=== PATIENT | male | born 1995 | race Caucasian/White ===

== ENCOUNTER 2024-06-06 19:46 | Emergency (ER) | payer OTHER, SELFPAY ==
[2024-06-06 19:54] VITALS: BP 164/108
--- NOTE | 2024-06-06 21:26 | EDRN ---
called patient when he was not found when his room was ready-- he stated that he left after waiting for 30 min. and would not be coming back-- I expressed concern and told him to come back if his symptoms continue or worsen in any way
== END 2024-06-06 21:29 ==
LOC: EMR 19:46
DX: R07.81 Pleurodynia (principal); Z53.21 Procedure and treatment not carried out due to patient leaving prior to being seen by health care provider
CPT/HCPCS: 71046

== ENCOUNTER 2024-06-07 05:03 | Inpatient (IN) | payer OTHER, SELFPAY ==
[2024-06-06 22:14] VITALS: BP 130/74
[2024-06-06 23:21] VITALS: BP 121/60
[2024-06-06 23:28] VITALS: BMI 30.1
[2024-06-06 23:58] LABS: % Basophils 0.4 % (0-2); % Eosinophils 4.4 % (0-6); % Immature Granulocytes 0.1 % (0-0.5); % Lymphocytes 25.5 % (20.5-51.1); % Monocytes 8.7 % (1.7-9.3); % Neutrophils 60.9 % (42.2-75.2); Absolute Eosinophils 0.4 10^3/uL (0-0.7); Absolute Lymphocytes 2.1 10^3/uL (1.2-3.4); Absolute Monocytes 0.7 10^3/uL (0.1-0.6); Hematocrit 39.9 % (39.0-52.0); Mean Corp Hgb Conc. 35.1 g/dL (33.0-37.0); Mean Corpuscular Hgb 30.7 pg (27.0-31.0); Mean Corpuscular Volume 87.5 fL (80.0-94.0); Mean Platelet Volume 9.8 fL (7.4-10.4); Nucleated Red Blood Cells % 0 % (-); Platelet Count 206 10^3/uL (130-400); Red Blood Cell Count 4.56 10^6/uL (4.70-6.10); Red Cell Dist. Width 11.4 % (11.5-14.5); White Blood Cell Count 8.2 10^3/uL (4.8-10.8)
[2024-06-07] VITALS (13 sets, daily range): BP systolic 113–142; BP diastolic 60–90; BMI 30.2
[2024-06-07 00:15] LABS: ALT (SGPT) 24 U/L (0-50); AST (SGOT) 28 U/L (17-59); Albumin 4.3 g/dl (3.5-5.0); Alkaline Phosphatase 60 U/L (38-126); Blood Urea Nitrogen 24 mg/dl (9-20); Calcium 9.6 mg/dl (8.4-10.2); Carbon Dioxide 33 mmol/L (22-30); Chloride 98 mmol/L (98-107); Estimated Creatinine Clearance 80 ml/min; Glucose 109 mg/dl (70-99); Potassium 4.5 mmol/L (3.5-5.1); Sodium 137 mmol/L (135-145); Total Bilirubin 0.5 mg/dl (0.2-1.3); Total Protein 7.1 g/dl (6.3-8.2); eGFR > 60.00
[2024-06-07 00:22] LABS: Troponin I < 0.012 ng/ml
--- NOTE | 2024-06-07 01:32 | ED.GENMED ---
History of Present Illness
General
Chief Complaint: Chest Problem
Source: patient
Exam Limitations: none
Time Seen by Provider: 06/07/24 00:48
Nursing documentation reviewed up to this point in time: agreed with
History of Present Illness
History of Present Illness:
Pleasant 28-year-old male presents with pain with inspiration. Patient states that the pain started 2 days ago and has recently increased in severity. Patient was seen earlier today and had a chest x-ray. He left AGAINST MEDICAL ADVICE from the
waiting room. He returned because his symptoms returned. The patient states that though he has asthma he reports that this is different.
Past History
Past History
ED Past Medical History: None
ED Past Surgical History: None
Social History
Alcohol: None
Personal: Single
Employment: Employed
Review of Systems
Review of Systems
Allergies reviewed?: Yes
All Other Systems: ROS reviewed and negative except as documented in HPI and ROS
Constitutional: Reports no symptoms
EENT: Reports no symptoms
Respiratory: Reports no symptoms
Cardiac: Reports palpitations
ABD/GI: Reports no symptoms
: Reports no symptoms
Musculoskeletal: Reports no symptoms
Skin: Reports no symptoms
Neurological: Reports no symptoms
Endocrine: Reports no symptoms
Hematologic/Lymphatic: Reports no symptoms
Psychiatric: Reports anxiety
Phy Exam
General Physical Exam
General Presentation: well appearing and no apparent distress
General Skin: warm and dry
General Habitus: normal
General Mental: alert
General Hydration: appears well hydrated
ENT Exam
ENT Exam: EOMI, pharynx normal, neck supple and normocephalic
Eye Exam
Eye Exam: PERRL, cornea clear and conjunctiva normal
Cardiovascular Exam
Cardiovascular Exam: regular rate/rhythm, no edema, no murmur and normal peripheral pulses
Pulmonary Exam
Pulmonary Exam: lungs clear, no respiratory distress, no rales, no crackles, no rhonchi, no stridor, no wheezing and no cough
Gastrointestinal Exam
Gastrointestinal Exam: normal bowel sounds, non tender, soft, no organomegaly, no pulsatile mass and non distended
Neurological Exam
Neurological Exam: alert, oriented x3, no motor deficits and speech normal
Musculoskeletal Exam
Musculoskeletal Exam: full ROM and no edema
Skin Exam
Skin Exam: normal color, warm/dry, no rash and no petechia
Psychiatric Exam
Psychiatric Exam: normal mood/affect
Course
Orders/Labs/Results
Orders:
Orders
06/06/24 22:19
Electrocardiogram (*1) Urgent
Reason for Study: Chest Pain
EKG- Treatment ONCE
06/06/24 23:53
Complete Blood Count/With Diff Urgent
Comprehensive Metabolic Panel Urgent
Troponin I Urgent
06/07/24 01:00
CT Chest Pe Study Stat
Comment:
Reason For Exam: tachycardia
06/07/24 02:33
PTT Urgent
Comment: Obtain baseline before beginning heparin infusion if not already collected
Heparin 8,100 units IV NOW STA
Pharmacy Request to Place See Dose Instructions PO NOW STA
Discontinue all Active Warfarin orders?: Yes
Nursing to Place Non Medication Order As Directed
Physician Order: PTT 6 hours after initial start of Heparin infusion
06/07/24 02:45
Heparin 24820 Units/250 ml 25,000 units in 250 ml IV PER PROTOCOL
Weight to be used for heparin protocol in kilograms (kg):: 100.7
Protocol:: DVT/PE
PTT Goal Range to be used:: PTT 73 to 111 seconds
Order type:: Initial
INITIAL Infusion Dose (UNITS/KG/hr) & then follow protocol:: 18 units/kg/hr
Infusion Dose in UNITS/hr & then follow protocol (UNITS/hr):: 1,800
INFUSION RATE in mL/hr & then follow protocol (mL/hr):: 18
For DVT/PE algorithm, re-bolus for low PTT?: Yes
PTT less than or equal to 64 seconds:: Re-bolus 80 units/kg (max 10,000units). Increase by 400 units/hr
(+ 4mL/hr)
PTT 64.1 to 72.9 seconds:: Re-bolus 40 units/kg (max 5,000 units). Increase by 200 units/hr
(+ 2mL/hr)
PTT 73 to 111 seconds:: Target Range. No change in rate.
PTT 111.1 to 130.9 seconds:: Decrease rate by 200 units/hr (- 2 mL/hr)
PTT 131 to 199.9 seconds:: HOLD for 1 hr. Then decrease by 300 units/hr (- 3mL/hr)
PTT greater than or equal to 200 seconds:: HOLD for 2 hrs & Notify Provider. Then decrease by 400 units/hr
(- 4mL/hr)
Lab follow-up:: Each change, PTT q6h until 2 consecutive are therapeutic. Then
PTT daily.
06/07/24 03:[address] See Dose Instructions IV DIRECTED
Abnormal Lab Results
06/06/24
23:53
RBC 4.56 L 10^6/uL
(4.70-6.10)
RDW 11.4 L %
(11.5-14.5)
Absolute Monos (auto) 0.7 H 10^3/uL
(0.1-0.6)
Carbon Dioxide 33 H mmol/L
(22-30)
BUN 24 H mg/dl
(9-20)
Creatinine 1.5 H mg/dL
(0.7-1.3)
Glucose 109 H mg/dl
(70-99)
06/06/24 23:53
06/06/24 23:53
Vital Signs
Initial and Last Documented VS:
Initial Vital Signs
Temp Pulse Resp BP Pulse Ox
98.3 F 102 18 130/74 96
06/06/24 22:14 06/06/24 22:14 06/06/24 22:14 06/06/24 22:14 06/06/24 22:14
Last Documented Vital Signs
Temp Pulse Resp BP Pulse Ox
98.3 F 64 19 123/75 96
06/06/24 22:14 06/07/24 02:00 06/07/24 02:00 06/07/24 02:00 06/07/24 02:00
*Radiology
Radiology exam reviewed: radiology read reviewed
*Critical Care Note
Total Time (30-74mins, 75-104mins- exclusive of procedures): 30
comment:
Critical care statement: A total of 30 minutes of critical care time was provided for this patient. This time is separate from time utilized to perform the aforementioned documented procedures. Aggregate critical care time includes only time
during which I was engaged in work directly related to the patient's care, as described above, whether at the bedside or elsewhere in the Emergency Department.
Patient Management
Social determinants of health affecting care: Strong social support
Discussion with other providers: Hospitalist and Radiologist
ED Attending Note
-
Portions of this chart may have been created with voice recognition software.� Occasional wrong word or��sound alike� substitutions may have occurred due to the inherent limitations of voice recognition software.
Discharge Plan
Departure
Patient Disposition: Admit
Date of Disposition: 06/07/24
Time of Disposition: 02:42
Presentation/result/management discussed w/ accepting MD/DO: Hospitalist
Condition: Good
Discharge Problem:
Pulmonary embolism
Prescriptions:
No Action
diclofenac sodium 75 MG tablet,delayed release (DR/EC)
75 mg PO BID Qty: 10 0RF
Referrals:
Tresa Omalley CRNP [Family Provider] -
Interventions
Interventions:
*Risk Screen - Suicide Last Done: 06/06/24 22:14
*General Assessment Last Done: 06/06/24 22:14
*Neglect/Abuse Screening Last Done: 06/06/24 22:14
ED- Fall Risk Assessment Last Done: 06/06/24 23:29
*ED COVID-19 Vaccine History Last Done: 06/06/24 23:29
ED- Cardiac Assessment Last Done: 06/06/24 23:29
ED- Pulmonary Assessment Last Done: 06/06/24 23:29
Discharge Date and Time
Print Language: OCCITAN
[2024-06-07] MEDS: HEPARIN 8100 UNITS IV (02:43)
[2024-06-07] MEDS: HEPARIN 25000 UNITS/250 ML IV ×2 (03:25→19:22)
--- NOTE | 2024-06-07 04:53 | HPS.HSE ---
Family Physician
-
Family Physician: JOHN Ruiz
Chief Complaint
-
CP
History of Present Illness
HPI
28M HX depression seen at ER yesterday for eval of CP with deep breathing.
Had CXR but left AMA.
Return to ER this hour due to worsening CP
Stable VSS
CXR: shows tiny loculated right pleural effusion.
CTC PE study; concerning for pulmonary infarcts. PE noted in the RLL segmental artery and likely in a lingular segmental pulmonary artery
- Hemodynamically stable
- NEG CT evidence of RH strain
- No prior HX DVT or PE
- Unknown for FHX of PE/DVT
- denied recent prolonged travelling, recent surgery
- denied leg swelling
- denied anabolic steroid use
Medical History
Past Medical History
Past Medical History: Reports Psychiatric (depression )
Past Surgical History: Reports None
Social History
Tobacco: Non-smoker
Alcohol: None
Family History
Family History: Not pertinent
Allergies / Home Medications
Allergies reflects when Allergies were last updated in [facility].
Home Medications with original date entered in [facility]
Allergy/Medication List:
Allergies
Allergy/AdvReac Type Severity Reaction Status Date / Time
brompheniramine Allergy Swelling Verified 06/06/24 19:57
[From Dimetapp
(brompheniramine-PPA)]
phenylpropanolamine Allergy Swelling Verified 06/06/24 19:57
[From Dimetapp
(brompheniramine-PPA)]
Home Medications
diclofenac sodium 75 mg tablet,delayed release 75 mg PO BID #10 tabs 06/17/17
Lexapro 10 mg PO DAILY 06/07/24
valacyclovir 500 mg PO DAILY 06/07/24
Review of Systems
-
Constitutional: Reports No Symptoms
EENT: Reports No Symptoms
Respiratory: Reports See HPI
Cardiac: Reports No Symptoms
Abdomen/GI: Reports No Symptoms
: Reports No Symptoms
Musculoskeletal: Reports No Symptoms
Skin: Reports No Symptoms
Neurological: Reports No Symptoms
Endocrine: Reports No Symptoms
Hematologic/Lymphatic: Reports No Symptoms
Psych: Reports No Symptoms
Physical Exam
Vital Signs
Vital Signs
Temp Pulse Resp BP Pulse Ox
98.3 F 110 26 123/75 98
06/06/24 22:14 06/07/24 02:45 06/07/24 02:45 06/07/24 02:00 06/07/24 02:45
Physical Exam
General: Well Developed, Well Nourished and No Apparent Distress
HEENT: NormoCephalic, Moist mucous membranes and Atraumatic
Respiratory: Clear
Cardiac: S1/S2 and Regular Rhythm; No Murmur or Rub
GI: Soft, Non Tender, Non Distended and Normal Bowel Sounds; No Organomegaly
Rectal: Deferred by Provider
Musculoskeletal: No Clubbing, No Cyanosis and No Edema
Skin: No Rash
Neuro: Nonfocal/grossly intact
Laboratory Results
-
06/06/24 23:53
06/06/24 23:53
Laboratory Results
APTT 27.0 Sec (23.4-35.0) 06/07/24 02:51
Total Bilirubin 0.5 mg/dl (0.2-1.3) 06/06/24 23:53
AST 28 U/L (17-59) 06/06/24 23:53
ALT 24 U/L (0-50) 06/06/24 23:53
Alkaline Phosphatase 60 U/L (38-126) 06/06/24 23:53
Troponin I < 0.012 ng/ml 06/06/24 23:53
Data Reviewed
-
CT Scan: Report Reviewed by me
Lab Data: Labs Reviewed by me
Impression/Plan
-
Reviewed VS: unremarkable
Data
Unremarkable CBC
CO2 33
BUN 24
Cr 1.5
NEG TPNI
06/06/24 CXR:
- Tiny loculated right pleural effusion.
- Minimal left lower lobe atelectasis versus scarring
06/07/24 CTC for PE
- Good bolus, extensive motion.
- Foci of groundglass opacity at the right posterior costophrenic angle and periphery of the lingula base concerning for pulmonary infarcts.
- PE noted in the RLL segmental artery and likely in a lingular segmental pulmonary artery (im 190, se 404).
- No CT findings of right heart strain.
- No evidence of aortic dissection or aneurysm.
- No pleural effusion or pneumothorax.
No prior admission:
ASSESSMENT & PLAN
Pending Rx reconciliation
concerning for pulmonary infarcts due to acute segmental PE in the RLL segmental artery and likely in a lingular segmental pulmonary artery
Associated with b/l pleuritic type CP worse on the Lt side
- No prior HX DVT or PE
- Unknown for FHX of PE/DVT
- denied recent prolonged travelling, recent surgery
- denied leg swelling
- denied anabolic steroid use
- Hemodynamically stable
- NEG CT evidence of RH strain
- Heparin gtt
- ECHO
- B/L LE US
- IV Dilaudid PRN for pleuritic CP
- Pul consult
Renal insufficiency suspect NSAID related
- Avoid Diclofenac
- trend Cr
DVT Px: Heparin gtt
Code: Full
IP TLM
--- NOTE | 2024-06-07 06:15 | PTCARENOTE ---
Received pt from ED. Pt able to ambulate from stretcher to bed w/ steady gait. Oriented pt to room. AOX3. Tele- SR. Currently has no complaints at this time. Denies pain/SOB at this time. Heparin gtt infusing at 1800 units/hr. NSS infusing at 60
ml/hr per order. See MAR. Currently in bed; call tarah w/in reach.
[2024-06-07] MEDS: NSS 1000 IV ×2 (06:28→20:14)
--- NOTE | 2024-06-07 08:52 | PTCARENOTE ---
Received patient this AM, sleeping in bed, arrived to floor in the heat treating operator. IV heparin infusing at 1800 units/hr with NS infusing at 60ml/hr. Patient scheduled for an echo and ultrasound today.
[2024-06-07] MEDS: VALTREX 500 MG PO (09:05)
[2024-06-07] MEDS: LEXAPRO 10 MG PO (09:05)
--- NOTE | 2024-06-07 09:16 | PTCARENOTE ---
Patient sent for his echo and U/S.
[2024-06-07 12:08] LABS: APTT > 200.00 Sec (23.4-35.0)
--- NOTE | 2024-06-07 12:43 | CON.PUL ---
Consultation
Consultation Request
Date/Time Consultation Requested: 06/07/2024 - 600
Date/Time Consultation Performed: 06/07/2024 - 1027
Requesting Provider: JOHN Douglas
Performing Provider: Kem Bell MD
Reason for Consultation: Acute PE
Medical History
-
Chief Complaint: Chest pain
History of Present Illness:
28-year-old M with PMHx of anxiety and panic attacks who p/w chest pain. He came to the ER on 06/06/2024 for similar complaint, had a CXR that showed suspected loculated R-pleural effusion with LLL-atelectasis, however he left AMA. He returned due
to Sx recurrence. He had been having chest pain during exertion, mainly experienced while at work. He was even having chest pain while walking or talking. In the Er he was tachycardic to 102, SpO2 96% on RA, RR 18 and afebrile to 98.3F. D-Dimer
elevated at 1.54, Cr elevated at 1.5 (he is a well-developed male, works out in the gym 4x a week), BUN 24, troponin negative x1, and CTA chest showed a subsegmental RLLl acute PE with linear scarring in the RML and inferior lingula and bibasilar
atelectasis. Heparin gtt started and he was admitted to the hospitalist service. Pulmonary consulted for additional recommendations.
When I saw the pt today, he was in bed on room air, breathing comfortably. Multiple family members at bedside, including patient's mother, sister and . I answered all their questions. The pt says that he is starting to feel better today. He
denies ever having a clot before, denies recent swelling in his legs, denies any recent plane rides, or recent long car rides. He is an active male, focusing on body building at least 4x a week. He has no limitations to his ADLs. No known family
Hx of DVT or PE. He still has mild chest discomfort, no SOB. No BHANDARI, abd pain, N/V/f/c.
PMHx: Anxiety, panic attacks, herpes simplex, reported Hx of asthma
PSHx: None
Past Medical History
Past Medical History: Other (above as per HPI)
Past Surgical History: Other (above as per HPI)
Social History
Tobacco: Non-smoker
Alcohol: None
Drug: Marijuana (Former)
Personal:
Living: With Family
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
Family History
Family History: Reviewed & Not Pertinent
Allergies / Home Medications
Allergies
Allergy/AdvReac Type Severity Reaction Status Date / Time
brompheniramine Allergy Swelling Verified 06/06/24 19:57
[From Dimetapp
(brompheniramine-PPA)]
phenylpropanolamine Allergy Swelling Verified 06/06/24 19:57
[From Dimetapp
(brompheniramine-PPA)]
Home Medications
�Medication �Instructions �Recorded �Confirmed �Last Taken �Type
Lexapro 10 mg PO DAILY 06/07/24 06/07/24 06/06/24 07:00 History
valacyclovir 500 mg PO DAILY 06/07/24 06/07/24 06/06/24 07:00 History
Review of Systems
-
History Source: Patient
All other systems: Negative unless noted
Vitals / Labs / Diagnostic Testing
Vital Signs
Temp Pulse Resp BP Pulse Ox
98.2 F 123 18 116/72 96
06/07/24 10:56 06/07/24 12:30 06/07/24 10:56 06/07/24 10:58 06/07/24 10:56
Lab Data
06/06/24 23:53
06/06/24 23:53
Laboratory Results
06/07/24 06/07/24
02:51 11:05
APTT 27.0 > 200.00 H*
Diagnostic Testing:
Physical Exam
-
HEENT: Normocephalic, Anicteric and Other (well-developed male in NAD)
Cardiovascular: S1/S2, Murmur (negative) and Peripheral Edema (negative)
Respiratory: Wheeze (negative), Rhonchi (negative), Non-Labored Respirations and Other (Coarse BS bilaterally)
GI: Soft, Non Distended, Non Tender and Normal Bowel Sounds
Neurology: AO x 3 and Tremors (negative)
Skin: Warm and Dry
General: Respiratory Distress (negative) and Comfortable
Assessment
-
Assessment: 28-year-old M with PMHx of anxiety and panic attacks who p/w chest pain. He came to the ER on 06/06/2024 for similar complaint, had a CXR that showed suspected loculated R-pleural effusion with LLL-atelectasis, however he left AMA. He
returned due to Sx recurrence. He had been having chest pain during exertion, mainly experienced while at work. He was even having chest pain while walking or talking. In the Er he was tachycardic to 102, SpO2 96% on RA, RR 18 and afebrile to
98.3F. D-Dimer elevated at 1.54, Cr elevated at 1.5 (he is a well-developed male, works out in the gym 4x a week), BUN 24, troponin negative x1, and CTA chest showed a subsegmental RLLl acute PE with linear scarring in the RML and inferior lingula
and bibasilar atelectasis. Heparin gtt started and he was admitted to the hospitalist service. Pulmonary consulted for additional recommendations.
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
Impression:
#Acute single subsegmental RLL pulmonary embolism without cor pulmonale or RV strain
#RLL parenchymal airspace opacity due to atelectasis versus infarct - I suspect the former
#Reported Hx of asthma - not currently in an acute exacerbation
#Elevated BUN and Cr, suspicious for EDDIE (unknown baseline, and he has high muscle mass so Cr may be elevated chronically)
#Anxiety/panic attacks
Plan:
- Continue systemic AC with heparin gtt for at least 48 hrs before transitioning to NOAC
- CM consult to see if Eliquis is affordable per patient's insurance
- No need to check TTE given no radiographic evidence of RV strain and cTnI also negative
- Maintain SpO2 >90-94% with supplemental O2 as needed
- prn nebulized bronchodilators - he is not currently bronchospastic
- Incentive spirometer encouraged
- Recommend outpatient hematology consultation for hypercoagulable workup and discussion of AC duration
- Replete electrolytes with K>4, Mg>2
- Maintain euglycemia with goal BG >100 and <180
- Pain control
- outpatient PFTs recommended fifi with his Hx of asthma
- DVT ppx: heparin gtt
Pulmonary service will continue to follow along, and I will arrange for outpatient follow up for full PFTs and symptom management.
Patient was seen and evaluated on 06/07/2024.
Total time spent today was 55 minutes for this encounter. Time includes reviewing laboratory test/imaging results, reviewing pertinent medical records, obtaining and reviewing medical history, performing an appropriate exam, ordering medications,
tests and procedures. Time also includes documentation of this encounter, coordinating patient care and communicating with other healthcare professionals. Total time does not include separately billed tests performed on this date of service.
Data:
CTA chest 06-07-2024:
There is a peripheral branch right lower lobe pulmonary embolus best seen on image 72 series 401 with associated hazy parenchymal airspace disease at the right posterior sulcus which may be dependent atelectasis or pulmonary infarct.
There is dependent atelectasis in the posterior left lung base.
There is no right heart strain
Bilateral lower extremity duplex 06-07-2024:
No evidence of deep venous thrombosis bilaterally.
--- NOTE | 2024-06-07 13:12 | CM ---
Chart reviewed. Patient is independent of ADLS, lives with his in a 2nd floor apartment, [address], 0 [address]. Plan is for the patient to return home. CM to follow
[2024-06-07 15:26] LABS: D-Dimer 1.54 ug/mlFEU (0.00-0.50)
--- NOTE | 2024-06-07 15:48 | W.PN.HOSP.TC ---
Addendum entered and electronically signed by Edmund Roper MD 06/08/24 15:20:
I saw and evaluated the patient. I reviewed the resident�s note and agree with findings and plan as documented in the resident�s note.
Addendum entered and electronically signed by Edumnd Roper MD 06/07/24 18:33:
I saw and evaluated the patient. I reviewed the resident�s note and agree with findings and plan as documented in the resident�s note.
First episode of spontaneous PE without DVT .HD stable . Follow ECHO.CW iv heparin. Will switch to Eliquis in am.
Await pulmonary input.
Cr elevation may be secondary to taking creatinine supplements -advised to stop them and repeat Cr in 1-2 weeks.
Original Note:
Today's Communication/Plan
-
Continue heparin. Continue pain control. Adjust recommendations based on recommendations provided by pulmonology consult. Avoid diclofenac and trend creatinine for renal insufficiency.
Assessment / Plan
Assessment / Plan
- Pulmonary embolism concerning for pulmonary infarct:
Chest CT showed peripheral branch right lower lobe pulmonary embolus with associated easy parenchymal airspace disease, right posterior sulcus which may be dependent atelectasis or pulmonary infarct. There was dependent atelectasis in the
posterior left lung base. No right heart strain was seen.
Bilateral lower extremity duplex venous ultrasound showed no evidence of deep venous thrombosis bilaterally.
Denies anabolic steroid use
Heparin
Echo showed no pathology
Pain control with medications such as Dilaudid, morphine, or oxycodone.
Pulmonology consult.
- Renal insufficiency possibly due to NSAID usage:
BUN is 24 and creatinine is 1.5 on 06/07
Avoid diclofenac
Trend creatinine and BUN
Anticipated Discharge: 24 - 48 hours
Subjective/Interval History
-
Date of Service: June 07, 2024
Met with patient at the bedside. He states that he is doing better. He stated that he began to have pain in his chest on Thursday and finally came to the hospital after the pain was unbearable. The pain was mostly on the left side of his chest. He
also mentioned that his family has a history of cancer.
Objective Data
-
Labs:
Laboratory Results
06/07/24 06/07/24
11:05 20:15
APTT > 200.00 H* Pending
Vital Signs:
Vital Signs
Temp Pulse Resp BP Pulse Ox
98.2 F 123 18 116/72 96
06/07/24 10:56 06/07/24 12:30 06/07/24 10:56 06/07/24 10:58 06/07/24 10:56
Review of Systems
-
History Source: Patient
All other systems: Reviewed and negative
Respiratory: Reports Other (Pain while breathing)
Cardiac: Reports No Symptoms
Abdomen/GI: Reports No Symptoms
Breast: Reports No Symptoms
Psych: Reports Anxious
Physical Exam
-
General: Well Developed, Well Nourished and No Apparent Distress
HEENT: Normocephalic, Atraumatic and Moist Mucous Membranes
Respiratory: Clear to Auscultation
Breast: Deferred by me
GI: Soft, Nontender and Nondistended
Rectal: Deferred by Provider
Genito-urinary: Deferred by me
Musculoskeletal: No Clubbing, No Cyanosis and No Edema
Skin: Warm and Dry
Neuro: Nonfocal/Grossly Intact
Psych: Calm
--- NOTE | 2024-06-07 16:40 | CM ---
Pricing on Eliquis 5 mg BID is $175 for a 30 day supply. The patient qualifies for a $10 co pay card. I explained it to the patient and he understands. I placed the co pay card in the patient's red discharge folder.
--- NOTE | 2024-06-07 18:09 | PTCARENOTE ---
Patient had run of ST in the 140's when moving in the room but denied any chest pain or sob. Re-notified pulmonary equipment application specialist re: consult, Dr. Castro forwarded message to Dr. Bell.
--- NOTE | 2024-06-07 19:27 | PTCARENOTE ---
Pt. seen in room with visitors. pt. AOx3 no complaints of pain or SOB. Heparin gtt rate verified by RN.
[2024-06-07 20:38] LABS: APTT 93.2 Sec (23.4-35.0)
[2024-06-08 00:45] VITALS: BP 135/70
[2024-06-08 02:57] VITALS: BP 122/73
--- NOTE | 2024-06-08 03:12 | PTCARENOTE ---
Pt stated after speaking with his mom via phone that his father's side has a hx of blood clots including a family member who needed an amputation.
am labs drawn, pt offers no complaints. Heparin and IVF continued. call rascon within reach
[2024-06-08 04:06] LABS: Hematocrit 39.9 % (39.0-52.0); Hemoglobin 14.2 g/dL (13.0-18.0); Mean Corp Hgb Conc. 35.6 g/dL (33.0-37.0); Mean Corpuscular Hgb 31.9 pg (27.0-31.0); Mean Corpuscular Volume 89.7 fL (80.0-94.0); Mean Platelet Volume 10.2 fL (7.4-10.4); Platelet Count 195 10^3/uL (130-400); Red Blood Cell Count 4.45 10^6/uL (4.70-6.10); Red Cell Dist. Width 11.4 % (11.5-14.5); White Blood Cell Count 8.3 10^3/uL (4.8-10.8)
[2024-06-08 04:22] LABS: APTT 109.1 Sec (23.4-35.0)
[2024-06-08 04:38] LABS: ALT (SGPT) 21 U/L (0-50); AST (SGOT) 25 U/L (17-59); Albumin 3.9 g/dl (3.5-5.0); Alkaline Phosphatase 62 U/L (38-126); Blood Urea Nitrogen 15 mg/dl (9-20); Calcium 9.2 mg/dl (8.4-10.2); Carbon Dioxide 29 mmol/L (22-30); Chloride 102 mmol/L (98-107); Estimated Creatinine Clearance 103 ml/min; Glucose 95 mg/dl (70-99); Potassium 4.1 mmol/L (3.5-5.1); Sodium 137 mmol/L (135-145); Total Bilirubin 0.9 mg/dl (0.2-1.3); Total Protein 6.6 g/dl (6.3-8.2); eGFR > 60.00
[2024-06-08 05:21] VITALS: BMI 30.2
[2024-06-08 07:35] VITALS: BP 114/67
[2024-06-08] MEDS: VALTREX 500 MG PO (09:29)
[2024-06-08] MEDS: LEXAPRO 10 MG PO (09:29)
[2024-06-08] MEDS: TYLENOL 650 MG PO (09:30)
--- NOTE | 2024-06-08 10:21 | W.PN.PUL3 ---
Today's Communication / Plan
-
Okay to transition to Eliquis tonight
Case management consultation to assure Eliquis is affordable
Up OOB as tolerated
Encourage incentive spirometer
I will arrange for outpatient follow-up with me for full PFTs
Outpatient hematology consultation recommended for hypercoagulable workup as well as assistance with AC duration
Assessment
-
Assessment: 28-year-old M with PMHx of anxiety and panic attacks who p/w chest pain. He came to the ER on 06/06/2024 for similar complaint, had a CXR that showed suspected loculated R-pleural effusion with LLL-atelectasis, however he left AMA. He
returned due to Sx recurrence. He had been having chest pain during exertion, mainly experienced while at work. He was even having chest pain while walking or talking. In the Er he was tachycardic to 102, SpO2 96% on RA, RR 18 and afebrile to
98.3F. D-Dimer elevated at 1.54, Cr elevated at 1.5 (he is a well-developed male, works out in the gym 4x a week), BUN 24, troponin negative x1, and CTA chest showed a subsegmental RLLl acute PE with linear scarring in the RML and inferior lingula
and bibasilar atelectasis. Heparin gtt started and he was admitted to the hospitalist service. Pulmonary consulted for additional recommendations.
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
Impression:
#Acute single subsegmental RLL pulmonary embolism without cor pulmonale or RV strain
#RLL parenchymal airspace opacity due to atelectasis versus infarct - I suspect the former
#Reported Hx of asthma - not currently in an acute exacerbation
#Elevated BUN and Cr, suspicious for EDDIE (unknown baseline, and he has high muscle mass so Cr may be elevated chronically) - resolved
#Anxiety/panic attacks
Plan:
- Ok to transition to Eliquis tonight
- CM consult to see if Eliquis is affordable per patient's insurance
- No need to check TTE given no radiographic evidence of RV strain and cTnI also negative
- Maintain SpO2 >90-94% with supplemental O2 as needed
- prn nebulized bronchodilators - he is not currently bronchospastic
- Incentive spirometer encouraged
- Recommend outpatient hematology consultation for hypercoagulable workup and discussion of AC duration
- Replete electrolytes with K>4, Mg>2
- Maintain euglycemia with goal BG >100 and <180
- Pain control
- outpatient PFTs recommended fifi with his Hx of asthma
- DVT ppx: heparin gtt
Pulmonary service will continue to follow along, and I will arrange for outpatient follow up for full PFTs and symptom management.
Pt can be discharged tonight after getting his dose of Eliquis assuming he can tolerate ambulation without SOB.
Patient was seen and evaluated on 06/08/2024.
Total time spent today was 35 minutes for this encounter. Time includes reviewing laboratory test/imaging results, reviewing pertinent medical records, obtaining and reviewing medical history, performing an appropriate exam, ordering medications,
tests and procedures. Time also includes documentation of this encounter, coordinating patient care and communicating with other healthcare professionals. Total time does not include separately billed tests performed on this date of service.
Data:
CTA chest 06-07-2024:
There is a peripheral branch right lower lobe pulmonary embolus best seen on image 72 series 401 with associated hazy parenchymal airspace disease at the right posterior sulcus which may be dependent atelectasis or pulmonary infarct.
There is dependent atelectasis in the posterior left lung base.
There is no right heart strain
Bilateral lower extremity duplex 06-07-2024:
No evidence of deep venous thrombosis bilaterally.
Subjective Data
-
Date of Service:
Date of Service: June 08, 2024
Chief Complaint: Pulmonary Follow Up
Subjective:
Pt was seen this afternoon. He was sleeping in bed with at bedside. He feels well. HR 82 and he is on room air breathing comfortably. He denies chest pain, SOB, abd pain, N/V/f/c.
Review of Systems
General: Other (negative unless mentioned above)
Objective Data
Data Reviewed
Vital Signs / I&O / Oxygen:
Vital Signs
Temp Pulse Resp BP Pulse Ox
98.6 F 75 20 114/67 96
06/08/24 07:33 06/08/24 08:00 06/08/24 07:33 06/08/24 07:35 06/08/24 07:33
Intake and Output
06/07/24 06/08/24 06/09/24
06:59 06:59 06:59
Intake Total 1920 / 1920
Output Total 500 / 500
Balance 1420 / 1420
SaO2 96
Physical Exam
General: Respiratory Distress (negative) and Comfortable
HEENT: Normocephalic and Anicteric
Cardiovascular: S1-S2 and Peripheral Edema (negative)
Respiratory: Wheeze (negative), Crackles (bibasilar), Rhonchi (negative) and Non-Labored Respirations
GI: Soft, Non Distended, Non Tender and Normal Bowel Sounds
Neurology: AO x 3 and Tremors (negative)
Skin: Warm, Dry and Jaundice (negative)
Labs/Micro/Reports
Lab Data
06/08/24 03:04
06/08/24 03:04
Laboratory Results
06/07/24 06/07/24 06/08/24
11:05 20:19 03:04
APTT > 200.00 H* 93.2 H 109.1 H
--- NOTE | 2024-06-08 10:21 | PTCARENOTE ---
Received patient this morning resting in bed. Medicated with tylenol po for mild right sided chest discomfort. UA sent to the lab as ordered.
[2024-06-08 10:26] LABS: Urine Albumin Negative (Neg - Trace); Urine Bilirubin Negative (Negative); Urine Glucose Negative (Negative); Urine Ketone Negative (Negative); Urine Leukocyte Negative (Negative); Urine Nitrite Negative (Negative); Urine Occult Blood Negative (Negative); Urine Specific Gravity 1.015 (<1.030); Urine Urobilinogen Negative (Neg - 1+)
[2024-06-08 10:33] LABS: Urine Character Clear (Clear); Urine Color Yellow
[2024-06-08 11:12] VITALS: BP 129/74
[2024-06-08] MEDS: NSS 1000 IV (13:08)
[2024-06-08] MEDS: HEPARIN 25000 UNITS/250 ML IV (13:09)
--- NOTE | 2024-06-08 13:48 | W.PN.HOSP.TC ---
Documented by User: Anat Xiao MD, Resident 06/08/24 14:00
Today's Communication/Plan
-
Patient will receive their last heparin infusion and then be started on oral Eliquis. Once his final dose of heparin is given the patient will be appropriate for discharge. The patient has been advised to get an outpatient basic metabolic panel.
Assessment / Plan
Assessment / Plan
- Pulmonary embolism concerning for pulmonary infarct:
Chest CT showed peripheral branch right lower lobe pulmonary embolus with associated easy parenchymal airspace disease, right posterior sulcus which may be dependent atelectasis or pulmonary infarct. There was dependent atelectasis in the
posterior left lung base. No right heart strain was seen.
Bilateral lower extremity duplex venous ultrasound showed no evidence of deep venous thrombosis bilaterally.
Denies anabolic steroid use
Heparin
Echo showed no pathology
Pain control with medications such as Dilaudid, morphine, or oxycodone.
Pulmonology consult advised using oral anticoagulants after completion of heparin. Specifically Eliquis and case monitor has checked to see if this medication will be covered by the patient's insurance.
Patient's last heparin dose will be given at 6 PM at night which will subsequently be replaced by Eliquis 10 mg twice daily. Eliquis Starter Pack.
Patient has been advised to obtain an outpatient basic metabolic panel to continue to assess further changes after discharge.
- Renal insufficiency possibly due to NSAID usage:
BUN is 15 and creatinine is 1.3 on 06/08
Avoid diclofenac
Trend creatinine and BUN
Anticipated Discharge: Within 24 hours
Subjective/Interval History
-
Date of Service: June 08, 2024
Met with patient at the bedside. Overall, he feels that he is doing much better than he has the past few days. He has been better able to sleep on his side whereas before he struggled to find any comfortable position to sleep in. He slept well
last night and his pain is under control. He believes that he is ready for discharge and is excited to go back to work.
Objective Data
-
Labs:
Laboratory Results
06/08/24
03:04
WBC 8.3
Hgb 14.2
Hct 39.9
Plt Count 195
APTT 109.1 H
Sodium 137
Potassium 4.1
Chloride 102
Carbon Dioxide 29
BUN 15
Creatinine 1.3
Glucose 95
Calcium 9.2
Total Bilirubin 0.9
AST 25
ALT 21
Alkaline Phosphatase 62
Vital Signs:
Vital Signs
Temp Pulse Resp BP Pulse Ox
98.8 F 89 20 129/74 94
06/08/24 11:10 06/08/24 11:30 06/08/24 11:10 06/08/24 11:12 06/08/24 11:10
I&O
06/07/24 06/08/24 06/09/24
06:59 06:59 06:59
Intake Total 1920 / 192
Output Total 500 / 500
Balance 1420 / 1420
Review of Systems
-
History Source: Patient
Constitutional: Reports No Symptoms
EENT: Reports No Symptoms Reported
Cardiac: Reports No Symptoms
Abdomen/GI: Reports No Symptoms
Breast: Reports No Symptoms
Genitourinary: Reports No Symptoms
Musculoskeletal: Reports No Symptoms
Skin: Reports No Symptoms
Neuro: Reports No Symptoms
Endocrine: Reports No Symptoms
Hematologic / Lymphatic: Reports No Symptoms
Allergy / Immunology: Reports No Symptoms
Physical Exam
-
General: Well Developed, Well Nourished and No Apparent Distress
HEENT: Normocephalic, Atraumatic and Moist Mucous Membranes
Respiratory: Clear to Auscultation
Cardiac: Regular Rhythm and S1/S2
Breast: Deferred by me
GI: Soft, Nontender, Nondistended and Normal Bowel Sounds
Rectal: Deferred by Provider
Genito-urinary: Deferred by me
Musculoskeletal: No Clubbing, No Cyanosis and No Edema
Skin: Warm
Neuro: Nonfocal/Grossly Intact
Psych: Calm

Documented by User: Edmund Roper MD 06/08/24 15:20
Assessment / Plan
Assessment / Plan
- Pulmonary embolism - spontaneous PE .No obvious risk factors evident so far based on current available data points. Advised stop using creatinine for muscle buildup.
Chest CT showed peripheral branch right lower lobe pulmonary embolus with associated easy parenchymal airspace disease, right posterior sulcus which may be dependent atelectasis or pulmonary infarct. There was dependent atelectasis in the
posterior left lung base. No right heart strain was seen.
Bilateral lower extremity duplex venous ultrasound showed no evidence of deep venous thrombosis bilaterally.
Denies anabolic steroid use
Switch to oral Eliquis this evening
Echo showed no RV strain
Pain control with medications-improved pain avoid narcotics
Pulmonology consult advised using oral anticoagulants after completion of heparin. Specifically Eliquis and case monitor has checked to see if this medication will be covered by the patient's insurance.
Patient's last heparin dose will be given at 6 PM at night which will subsequently be replaced by Eliquis 10 mg twice daily. Eliquis Starter Pack.
Patient has been advised to obtain an outpatient basic metabolic panel to continue to assess further changes after discharge.
- Renal insufficiency - doubt NSAID use -not much base on hx . Suspect sec to use of Creatinine supplements.
BUN is 15 and creatinine is 1.3 on 06/08
Advised to stop creatinine supplements and check a BMP in 1 to 2 weeks and if normal no further testing
Medically stable for discharge after switch to oral anticoagulants this evening.
All questions answered. Advised follow-up with PCP and also pulmonary as an outpatient.
Total time of discharge 35 minutes
[2024-06-08 15:00] VITALS: BP 127/75
--- NOTE | 2024-06-08 16:24 | W.DS.TRANS ---
DC Summary - Podiatric Physician
-
Discharge Instructions:
Discharge Diagnosis/Procedures Pulmonary embolism and Renal insufficiency
Diet No restrictions
Activity No restrictions
Driving Restrictions As prior to admission
Bathing Restrictions None
Instructions:
Stand-Alone Forms:
Changes to Home Medications: Yes
Discharge Medications:
DC Medications w/original date entered in [employer]
Lexapro 10 mg PO DAILY 06/07/24
valacyclovir 500 mg PO DAILY 06/07/24
acetaminophen 325 mg tablet 650 mg (2 x 325 mg) PO Q4HPRN PRN mild pain/BHANDARI/temp> 100.4F #1 tab 06/08/24
apixaban 5 mg tablet (Eliquis) 5 mg PO DIRECTED #86 tabs 06/08/24
Home Medication Changes
Apixaban (Eliquis) added for Pulmonary Embolism Prophylaxis. Please follow up with outpatient provider to continue medication script.
Pending Results: No
--- NOTE | 2024-06-08 16:27 | W.DCSUMMARY ---
Addendum entered and electronically signed by Edmund Roper MD 06/08/24 16:59:
Read, reviewed, and agree. See same day progress note for additional details. Time spent coordinating care, DC planning, review of DC plan of care with resident, transition of care, review of records in EMR, med rec, consults, notes, d/w
consultants, nursing, family, and CM 35 mins
Original Note:
Documented by User: Anat Xiao MD, Resident 06/08/24 16:50
Discharge Summary
Discharge Data
Date of Admission: 06/07/24
Date of Discharge: 06/08/24
-
Pending Results: No
Hospital Course
Patient is a 28-year-old male who presented to the emergency department with pain on inspiration. He stated that the pain started 2 days prior to his presentation and was increasing in severity. He was seen earlier that same day and had a chest
x-ray but decided to leave AGAINST MEDICAL ADVICE. He returned back to the emergency department because his symptoms continued to worsen. The patient has a history of asthma and said that his chest pain was different than what he is experienced
prior and during exacerbation of his asthma. Chest x-ray showed minimal left lower atelectasis versus scarring. Chest CT showed peripheral branch right lower lobe pulmonary embolus with associated hazy parenchymal airspace disease at the right
posterior sulcus which was suspected of being atelectasis or pulmonary infarct. There was no right heart strain seen. Patient was admitted to [facility] for pulmonary embolism.
During this patient's hospital stay he was anticoagulated using heparin. Patient's pain slowly improved with the help of pain medications and bedrest. Echocardiogram conducted showed normal diastolic function, no significant valve disease, and
normal right heart chamber sizes. There was trace tricuspid regurgitation with an estimated pulmonary artery systolic pressure of 22mmHg. The patient's pain stabilized and he vocalized a desire to be followed further in the outpatient setting.
Patient's oxygen saturation was around 96% on room air and the patient does not struggle to breathe, making discharge appropriate at this time.
The patient has reached maximal benefit from this hospital admission and is appropriate for discharge at this time. Patient should continue to be followed by his primary care provider and unified communications architect. The patient has been advised to continue
pulmonary embolism prophylaxis using Eliquis. The patient has been prescribed an Eliquis starter pack and given education in regards to safely taking this medication. Patient has been advised to have a basic metabolic panel conducted in the
outpatient setting ideally with his primary care provider.
Discharge Plan
-
Patient Disposition: Home (Routine Discharge)
Discharge Diagnosis/Procedures: Pulmonary embolism ; elevated creatinine ? sec to creatinine supplement use
Condition: Good
Diet: No restrictions
Activity: No restrictions
Driving Restrictions: As prior to admission
Bathing Restrictions: None
Referrals:
Kem Bell MD [Active] - in four to six weeks (full PFTs on day of office visit)
Tresa Omalley CRNP [Family Provider] - in less than 1 week
Additional Discharge Medication Instructions: Patient should have an outpatient basic metabolic panel conducted.
Prescriptions:
New
Eliquis 5 mg tablet
5 mg PO DIRECTED Qty: 86 0RF
Rx Instructions:
10mg( 2 tabs ) BID till 06/14/24
5mg( 1 tab) BID starting 06/15/24 am
acetaminophen 325 mg Tablet
650 mg PO Q4HPRN PRN (Reason: mild pain/BHANDARI/temp> 100.4F) Qty: 1 0RF
Continued
Lexapro
10 mg PO DAILY
valacyclovir
500 mg PO DAILY
Discharge Orders:
Discharge Patient (As Directed); Ordered 06/08/24
Ordered By: Edmund Roper
Care Plan Goals
Care Plan Goals:
Problem: Readiness for enhanced knowledge related to diagnosis and treatment plan
Goal: Understand your diagnosis and treatment plan needs, including medications if applicable.
Instructions: Know your diagnosis, underlying causes and treatment plan options, including medications if applicable. Consult with your health care team to learn about your diagnosis and treatment plan, including medications if applicable.
Discharge Date and Time
Print Language: GUINEAN

Documented by User: Edmund Roper MD 06/08/24 16:58
Discharge Summary
Discharge Data
Date of Admission: 06/07/24
Date of Discharge: 06/08/24
Hospital Course
Patient is a 28-year-old male who presented to the emergency department with pain on inspiration. He stated that the pain started 2 days prior to his presentation and was increasing in severity. He was seen earlier that same day and had a chest
x-ray but decided to leave AGAINST MEDICAL ADVICE. He returned back to the emergency department because his symptoms continued to worsen. The patient has a history of asthma and said that his chest pain was different than what he is experienced
prior and during exacerbation of his asthma. Chest x-ray showed minimal left lower atelectasis versus scarring. Chest CT showed peripheral branch right lower lobe pulmonary embolus with associated hazy parenchymal airspace disease at the right
posterior sulcus which was suspected of being atelectasis or pulmonary infarct. There was no right heart strain seen. Patient was admitted to [facility] for pulmonary embolism.
During this patient's hospital stay he was anticoagulated using heparin. Patient's pain slowly improved with the help of pain medications and bedrest. Echocardiogram conducted showed normal diastolic function, no significant valve disease, and
normal right heart chamber sizes. There was trace tricuspid regurgitation with an estimated pulmonary artery systolic pressure of 22mmHg. The patient's pain stabilized and he vocalized a desire to be followed further in the outpatient setting.
Patient's oxygen saturation was around 96% on room air and the patient does not struggle to breathe, making discharge appropriate at this time.
Patient was noted to have a creatinine of 1.5. It is an anxiety without prior medical history and I suspect this may be related to his creatinine supplements he takes. Advised him to stop them and repeat creatinine in 1 to 2 weeks time and if it
normalizes no further evaluation warranted.
The patient has reached maximal benefit from this hospital admission and is appropriate for discharge at this time. Patient should continue to be followed by his primary care provider and unified communications architect. The patient has been advised to continue
pulmonary embolism prophylaxis using Eliquis. The patient has been prescribed an Eliquis starter pack and given education in regards to safely taking this medication. Patient has been advised to have a basic metabolic panel conducted in the
outpatient setting ideally with his primary care provider.
Discharge Plan
-
Patient Disposition: Home (Routine Discharge)
Discharge Diagnosis/Procedures: Pulmonary embolism ; elevated creatinine ? sec to creatinine supplement use
Condition: Good
Diet: No restrictions
Activity: No restrictions
Driving Restrictions: As prior to admission
Bathing Restrictions: None
Referrals:
Kem Bell MD [Active] - in four to six weeks (full PFTs on day of office visit)
Tresa Omalley CRNP [Family Provider] - in less than 1 week
Additional Discharge Medication Instructions: Patient should have an outpatient basic metabolic panel conducted.
Prescriptions:
New
Eliquis 5 mg tablet
5 mg PO DIRECTED Qty: 86 0RF
Rx Instructions:
10mg( 2 tabs ) BID till 06/14/24
5mg( 1 tab) BID starting 06/15/24 am
acetaminophen 325 mg Tablet
650 mg PO Q4HPRN PRN (Reason: mild pain/BHANDARI/temp> 100.4F) Qty: 1 0RF
Continued
Lexapro
10 mg PO DAILY
valacyclovir
500 mg PO DAILY
Discharge Orders:
Discharge Patient (As Directed); Ordered 06/08/24
Ordered By: Edmund Roper
Care Plan Goals
Care Plan Goals:
Problem: Readiness for enhanced knowledge related to diagnosis and treatment plan
Goal: Understand your diagnosis and treatment plan needs, including medications if applicable.
Instructions: Know your diagnosis, underlying causes and treatment plan options, including medications if applicable. Consult with your health care team to learn about your diagnosis and treatment plan, including medications if applicable.
Discharge Date and Time
Print Language: GUINEAN
[2024-06-08] MEDS: ELIQUIS 10 MG PO (17:55)
--- NOTE | 2024-06-08 18:50 | PTCARENOTE ---
Pt discharged after receiving eliquis and discontinuing heparin. Pt verbalized understanding of instructions, given return to work note from Dr. Roper.
[2024-06-10 03:02] LABS: Beta-2-Glycoprotein I Ab. IgA <10 SAU (<=20); Beta-2-Glycoprotein I Ab. IgG <10 SGU (<=20); Beta-2-Glycoprotein I Ab. IgM <10 SMU (<=20)
[2024-06-10 07:27] LABS: Cardiolipin IgA Antibody <10 APL (<=11); Cardiolipin IgM Antibody <10 MPL (<=12); Cardiolipin Igg Antibody <10 GPL (<=14)
== END 2024-06-08 18:52 | disposition home or self-care (01) | DRG 176 ==
LOC: IVU 05:03
PROVIDERS: Physician Assistant Medical; ADMITTING PHYSICIAN Internal Medicine; ATTENDING PHYSICIAN Internal Medicine; EMERGENCY PHYSICIAN Student in an Organized Health Care Education/Training Program; FAMILY PHYSICIAN Nurse Practitioner; OTHER PHYSICIAN Internal Medicine Critical Care Medicine
DX: I26.99 Other pulmonary embolism without acute cor pulmonale (principal)
CPT/HCPCS: 71275; 80053; 81003; 84484; 85025; 85027; 85379; 85730; 86146; 86147; 86148; 93005; 93306; 93970; 96374; 96376; Q9967

== ENCOUNTER → 2024-09-01 18:47 | Outpatient (REF) | payer OTHER, SELFPAY | LOC: RAD 18:47 | PROVIDERS: ATTENDING PHYSICIAN Nurse Practitioner Adult Health; FAMILY PHYSICIAN Nurse Practitioner | DX: R93.89 Abnormal findings on diagnostic imaging of other specified body structures (principal) | CPT/HCPCS: 71046 ==